=== PATIENT | male | born 2000 | race Caucasian/White ===

== ENCOUNTER 2020-08-10 11:00 | Emergency (ER) | payer OTHER ==
[~2020-08-10] VITALS: Ht 170.2 cm; Wt 73.1 kg
[2020-08-10] MEDS ORDERED: NS 1,000 ML IV ONE (11:30)
[2020-08-10] MEDS ORDERED: KETOROLAC 30 MG/ML 1ML VIAL IV ONE (11:30)
[2020-08-10] MEDS ORDERED: LIDOCAINE 1% MDV 20ML VIAL SC ONE (11:30)
[2020-08-10 12:15] LABS: BASO # 0.1 10^3/uL (0.0-0.2); BASO % 0.7 % (0.0-1.0); EOS # 0.2 10^3/uL (0.0-0.5); EOS % 1.7 % (0.0-3.0); HEMATOCRIT 41.6 % (42.0-52.0); HEMOGLOBIN 14.1 g/dl (13.5-17.5); LYMPH # 1.6 10^3/uL (1.5-5.0); LYMPH % 15.9 % (24.0-44.0); MEAN CORPUSCULAR HGB CONC 33.9 g/dl (32.0-36.5); MEAN CORPUSCULAR VOLUME 97.4 fl (80.0-96.0); MONO # 1.7 10^3/uL (0.0-0.8); MONO % 16.7 % (2.0-8.0); NEUTROPHILS # 6.7 10^3/uL (1.5-8.5); NEUTROPHILS % 64.8 % (36.0-66.0); PLATELET COUNT, AUTOMATED 201 10^3/uL (150-450); RED BLOOD COUNT 4.27 10^6/uL (4.30-6.10); WHITE BLOOD COUNT 10.3 10^3/uL (4.0-10.0)
[2020-08-10] MEDS ORDERED: BACT800T5 PO (12:57)
[2020-08-10 13:08] VITALS: BP 132/76
== END 2020-08-10 13:13 | disposition home or self-care (01) ==
LOC: M ED 11:00
DX: L05.01 Pilonidal cyst with abscess (principal); Z88.1 Allergy status to other antibiotic agents
CPT/HCPCS: 10060; 80047; 85025; 87040; 87070; 87077; 87186; 87205; 96361; 96374; 99283; J1885

== ENCOUNTER 2021-12-27 06:41 | Emergency (ER) | payer OTHER ==
[~2021-12-27] VITALS: Ht 172.7 cm; Wt 77.7 kg
[~2021-12-27 06:41] MED LIST: BACT800T5 PO
[2021-12-27] MEDS ORDERED: IBUP1TAB7 PO (06:49)
[2021-12-27] MEDS ORDERED: D-ME1CAP36 PO (06:49)
[2021-12-27] MEDS ORDERED: ACETAMINOPHEN 500 MG TAB PO ONE (10:10)
[2021-12-27] MEDS ORDERED: AMOX875T2 PO (12:21)
[2021-12-27] MEDS ORDERED: BENZ200C70 PO (12:21)
[2021-12-27 12:26] VITALS: BP 131/65
== END 2021-12-27 12:28 | disposition home or self-care (01) ==
LOC: M ED 06:41
DX: J06.9 Acute upper respiratory infection, unspecified (principal); R50.9 Fever, unspecified; F90.9 Attention-deficit hyperactivity disorder, unspecified type; Z79.899 Other long term (current) drug therapy

== ENCOUNTER 2022-01-30 09:20 | Emergency (ER) | payer OTHER ==
[~2022-01-30] VITALS: Ht 172.7 cm; Wt 79.8 kg
[~2022-01-30 09:20] MED LIST changes: +AMOX875T2 PO; +BENZ200C70 PO; +D-ME1CAP36 PO; +IBUP1TAB7 PO
[2022-01-30] MEDS ORDERED: ACET-897 PO (09:48)
[2022-01-30] MEDS ORDERED: [UNRECOGNIZED DRUG - CODE] PO (09:48)
[2022-01-30] MEDS ORDERED: REGL10TA6 PO (12:11)
[2022-01-30 12:16] VITALS: BP 133/70
== END 2022-01-30 12:22 | disposition home or self-care (01) ==
LOC: M ED 09:20
DX: S06.0X0A Concussion without loss of consciousness, initial encounter (principal); V47.5XXA Car driver injured in collision with fixed or stationary object in traffic accident, initial encounter; Y92.410 Unspecified street and highway as the place of occurrence of the external cause; Z88.1 Allergy status to other antibiotic agents; Z91.018 Allergy to other foods; Z79.899 Other long term (current) drug therapy